=== PATIENT | male | born 1990 | race Hispanic/Latino ===

== ENCOUNTER 2017-04-19 11:44 | Emergency (ER) | payer OTHER, SELFPAY ==
[2017-04-19] MEDS ORDERED: HYDROcodone/Acetaminophen 10/325 mg Tablet ONE (11:55)
--- NOTE | 2017-04-19 20:13 | RAD ---
LEFT LEG TWO VIEWS 04/19/17 No fracture was seen. The tibia and fibula appear intact. IMPRESSION: No acute finding. POS: HOME
--- NOTE | 2017-04-19 20:15 | RAD ---
LEFT FEMUR 04/19/17 Several films cover the femur in the AP and lateral views. No fracture was visible. The hip joints a ppear normal as does the knee joint. IMPRESSION: No acute finding. POS: HOME
== END 2017-04-19 12:56 | disposition home or self-care (01) ==
LOC: BURERS 11:44
DX: S70.12XA Contusion of left thigh, initial encounter (principal); S80.12XA Contusion of left lower leg, initial encounter; F17.210 Nicotine dependence, cigarettes, uncomplicated; W01.110A Fall on same level from slipping, tripping and stumbling with subsequent striking against sharp glass, initial encounter